=== PATIENT | female | born 1995 | race Caucasian/White ===

== ENCOUNTER 2018-07-12 23:25 | Emergency (ER) | payer MEDICAID ==
[~2018-07-12] VITALS: Ht 157.5 cm; Wt 48.0 kg
[2018-07-13] MEDS ORDERED: SODIUM CHLORIDE 0.9% 1,000 ML IV ONE (01:23)
[2018-07-13 02:25] LABS: CHLORIDE 109 mEq/L (98-107)
[2018-07-13 02:26] LABS: BASOPHILS % 0.3 % (0.0-2.0); EOSINOPHILS % 1.2 % (0.0-5.0); HEMATOCRIT. 26.9 % (36.0-48.0); HEMOGLOBIN. 8.8 g/dL (12.0-16.0); MEAN CORPUSCULAR HEMOGLOBIN 23.6 pg (28.0-32.0); MEAN CORPUSCULAR VOLUME 72.2 fL (81.0-99.0); MEAN PLATELET VOLUME 8.6 fl (7.4-10.4); MONOCYTES % 7.5 % (2.0-8.0); PLATELET 233 x1000/uL (130-400); RED BLOOD CELL COUNT 3.73 mill/uL (4.2-5.4); RED CELL DISTRIBUTION WIDTH 18.6 % (11.6-14.6)
[2018-07-13 02:35] LABS: B-HCG QUANTITATIVE 218 mIU/mL (<3)
[2018-07-13 03:34] LABS: CLARITY URINE CLOUDY (CLEAR); COLOR URINE YELLOW (YELLOW); KETONES URINE TRACE (NEGATIVE); LEUKOCYTE ESTERASE URINE 2+ (NEGATIVE); NITRITE URINE POSITIVE (NEGATIVE); OCCULT BLOOD URINE 3+ (NEGATIVE); PH URINE 7.5 (4.5-8.0); PROTEIN URINE TRACE (NEGATIVE); SPECIFIC GRAVITY URINE 1.031 (1.005-1.030)
[2018-07-13 03:53] LABS: *AMPHETAMINES SCREEN URINE NEGATIVE (NEGATIVE); *BARBITURATES SCREEN URINE NEGATIVE (NEGATIVE); *BENZODIAZEPINES SCREEN URINE NEGATIVE (NEGATIVE); *COCAINE SCREEN URINE NEGATIVE (NEGATIVE); METHADONE URINE SCREEN NEGATIVE (NEGATIVE)
[2018-07-13 03:54] LABS: CANNABINOID URINE SCREEN NEGATIVE (NEGATIVE); OPIATES URINE SCREEN NEGATIVE (NEGATIVE); PHENCYCLIDINE URINE SCREEN NEGATIVE (NEGATIVE)
[2018-07-13 05:18] VITALS: BP 110/64
== END 2018-07-13 05:22 | disposition home or self-care (01) ==
LOC: ER 23:25
DX: N93.9 Abnormal uterine and vaginal bleeding, unspecified (principal); N39.0 Urinary tract infection, site not specified
CPT/HCPCS: 36415; 76801; 76817; 80048; 80305; 81003; 81025; 84702; 85025; 86850; 86870; 86900; 86901; 87077; 87086; 87186; 99285; J7030; Z7610

== ENCOUNTER 2021-09-17 14:04 | Observation (INO) | payer MEDICAID ==
[~2021-09-17] VITALS: Ht 157.5 cm; Wt 72.6 kg
[2021-09-17] MEDS ORDERED: PNV1TABL76 PO (15:36)
== END 2021-09-17 16:15 | disposition home or self-care (01) ==
LOC: 8EST NSY 14:04 → 8 EST LDRP 14:09
PROVIDERS: ADMIT Obstetrics & Gynecology; ATTEND Obstetrics & Gynecology
DX: O62.9 Abnormality of forces of labor, unspecified (principal); O26.893 Other specified pregnancy related conditions, third trimester; R10.9 Unspecified abdominal pain; Z3A.39 39 weeks gestation of pregnancy
CPT/HCPCS: 59025; G0378; 99281

== ENCOUNTER 2024-11-15 02:05 | Emergency (ER) | payer MEDICAID ==
[~2024-11-15] VITALS: Ht 160 cm; Wt 80.0 kg
[~2024-11-15 02:05] MED LIST: PNV1TABL76 PO
[2024-11-15 02:08] VITALS: O2SAT 99
[2024-11-15 02:46] LABS: CLARITY URINE CLOUDY (CLEAR); COLOR URINE ORANGE (YELLOW); GLUCOSE URINE TRACE (NEGATIVE); KETONES URINE NEGATIVE (NEGATIVE); LEUKOCYTE ESTERASE URINE TRACE (NEGATIVE); NITRITE URINE NEGATIVE (NEGATIVE); OCCULT BLOOD URINE NEGATIVE (NEGATIVE); PH URINE 5.5 (4.5-8.0); PROTEIN URINE 2+ (NEGATIVE); SPECIFIC GRAVITY URINE 1.036 (1.005-1.030)
[2024-11-15 02:55] LABS: *AMPHETAMINES SCREEN URINE NEGATIVE (NEGATIVE); *BARBITURATES SCREEN URINE NEGATIVE (NEGATIVE); *BENZODIAZEPINES SCREEN URINE NEGATIVE (NEGATIVE); *COCAINE SCREEN URINE NEGATIVE (NEGATIVE); METHADONE URINE SCREEN NEGATIVE (NEGATIVE); OPIATES URINE SCREEN NEGATIVE (NEGATIVE); PHENCYCLIDINE URINE SCREEN NEGATIVE (NEGATIVE)
[2024-11-15 02:56] LABS: CANNABINOID URINE SCREEN NEGATIVE (NEGATIVE); ECSTASY MDMA SCREEN URINE NEGATIVE (NEGATIVE)
[2024-11-15 03:01] LABS: BASOPHILS % 0.2 % (0.0-2.0); DIFFERENTIAL COMMENT 0; EOSINOPHILS % 0.2 % (0.0-5.0); HEMATOCRIT. 31.6 % (36.0-48.0); HEMOGLOBIN. 10.2 g/dL (12.0-16.0); LYMPHOCYTES % 8.2 % (20.0-50.0); MEAN CORPUSCULAR HEMOGLOBIN 23.2 pg (28.0-32.0); MEAN CORPUSCULAR HGB CONC 32.1 g/dL (31.0-37.0); MEAN PLATELET VOLUME 8.2 fl (7.4-10.4); MONOCYTES % 3.4 % (2.0-8.0); PLATELET 248 x1000/uL (130-400); RED BLOOD CELL COUNT 4.39 mill/uL (4.2-5.4); RED CELL DISTRIBUTION WIDTH 16.7 % (11.6-14.6); WHITE BLOOD COUNT 6.3 x1000/uL (4.5-11.0)
[2024-11-15] MEDS: ACETAMINOPHEN 1000MG/100ML 100 ML IV ONE (03:07)
[2024-11-15] MEDS: ONDANSETRON HCL 4MG/2ML INJ IV ONE (03:07)
[2024-11-15] MEDS: SODIUM CHLORIDE 0.9% 1,000 ML IV ONE ×2 (03:07→04:30)
[2024-11-15] MEDS: MAGNESIUM/ALUMINUM HYDROXIDE/SIMETHICONE 30ML UDC PO ONE (03:07)
[2024-11-15 03:12] LABS: CHLORIDE 108 mEq/L (98-107); POTASSIUM 3.4 mEq/L (3.5-5.1); SODIUM 138 mEq/L (136-145)
[2024-11-15 03:13] LABS: CARBON DIOXIDE 16 mEq/L (21-32)
[2024-11-15 03:14] LABS: CALCIUM 8.2 mg/dL (8.7-10.4)
[2024-11-15 03:19] LABS: CREATININE 0.6 mg/dL (0.6-1.0); GLUCOSE 129 mg/dL (70-105); UREA NITROGEN BLOOD 10 mg/dL (9-23)
[2024-11-15 03:49] LABS: B-HCG QUANTITATIVE 14900 mIU/mL (<3)
[2024-11-15 06:50] LABS: SQUAMOUS EPITHELIAL CELL URINE 3+ /lpf (RARE/1+)
[2024-11-15 06:51] LABS: WBC URINE 0-2 /hpf (0-2)
[2024-11-15 06:52] LABS: BACTERIA URINE NONE SEEN; RBC URINE 0-2 /hpf (0-2)
[2024-11-15] MEDS: SODIUM CHLORIDE 0.9% 500 ML IV ONE (07:59)
[2024-11-15 09:59] VITALS: BP 95/55; PULSE 89; RESP 15; TEMP 36.8; O2SAT 97
[2024-11-15 10:03] LABS: PROTHROMBIN TIME 10.9 sec (9.6-11.0)
[2024-11-15 10:06] LABS: ALANINE AMINOTRANSFERASE < 7 IU/L (10-49); ASPARTATE AMINOTRANSFERASE 10 IU/L (<34)
[2024-11-15 10:07] LABS: ALBUMIN 3.2 g/dL (3.2-4.8); BILIRUBIN DIRECT 0.2 mg/dL (<=3.0); BILIRUBIN TOTAL 0.7 mg/dL (0.1-1.0); PROTEIN TOTAL 5.6 g/dL (6.0-8.3)
== END 2024-11-15 10:24 | disposition home or self-care (01) ==
LOC: ER 02:05
DX: O21.2 Late vomiting of pregnancy (principal); O26.612 Liver and biliary tract disorders in pregnancy, second trimester; O99.891 Other specified diseases and conditions complicating pregnancy; Z3A.25 25 weeks gestation of pregnancy
CPT/HCPCS: 99285; 86870; 96365; 76700; 76805; 96361; 96366; 96375; 87426; 80076; 80305; 80048; 81003; 81025; 84702; 85025; 85610; 86850; 86900; 86901; 87804 ×2; 93005; 36415; J2405; J7040; J7030; J0131